=== PATIENT | female | born 1995 | race Caucasian/White ===

== ENCOUNTER 2023-12-21 22:50 | Emergency (ER) | payer SELFPAY ==
[~2023-12-21] VITALS: Ht 162.6 cm; Wt 59.0 kg
[2023-12-21 23:37] VITALS: TEMP 98; O2SAT 100
[2023-12-21 23:39] VITALS: BP 134/96; PULSE 89; RESP 18
[2023-12-22] MEDS ORDERED: LIDOCAINE HCL/PF 1% 10 MG/ML 5ML VIAL INFIL ONE (00:30)
[2023-12-22] MEDS ORDERED: NAPR-681 PO (01:15)
[2023-12-22] MEDS ORDERED: CEPH500C2 MT (01:15)
== END 2023-12-22 01:23 | disposition home or self-care (01) ==
LOC: ER 22:50
DX: S01.511A Laceration without foreign body of lip, initial encounter (principal); X58.XXXA Exposure to other specified factors, initial encounter; Y93.89 Activity, other specified; Y92.89 Other specified places as the place of occurrence of the external cause; Y99.8 Other external cause status
CPT/HCPCS: 99283; 12013; J3490; Z7610 ×2